=== PATIENT | male | born 1965 | race African-American/Black ===

== ENCOUNTER 2018-01-06 13:36 | Emergency (ER) | payer MEDICAID, OTHER ==
[~2018-01-06] VITALS: Ht 167.6 cm; Wt 87.0 kg
[~2018-01-06 13:36] MED LIST: ASPIRIN; ENALAPRIL; LIPITOR; METFORMIN
[2018-01-06 18:40] VITALS: BP 113/82
== END 2018-01-06 19:17 | disposition home or self-care (01) ==
LOC: ER 13:59
DX: S39.012A Strain of muscle, fascia and tendon of lower back, initial encounter (principal); E11.9 Type 2 diabetes mellitus without complications; F17.200 Nicotine dependence, unspecified, uncomplicated; F14.10 Cocaine abuse, uncomplicated; Z91.041 Radiographic dye allergy status; Z79.84 Long term (current) use of oral hypoglycemic drugs; W07.XXXA Fall from chair, initial encounter; Y93.89 Activity, other specified; Y92.811 Bus as the place of occurrence of the external cause
CPT/HCPCS: 72100; 99284

== ENCOUNTER 2022-08-03 09:09 | Emergency (ER) | payer MEDICAID ==
[~2022-08-03] VITALS: Ht 175.3 cm; Wt 81.6 kg
[2022-08-03 09:15] VITALS: BP 171/108
[2022-08-03] MEDS ORDERED: CEPH500T PO (10:42)
[2022-08-03] MEDS ORDERED: SULF1TAB48 PO (10:42)
[2022-08-03] MEDS ORDERED: LIDOCAINE HCL/PF 1% 10 MG/ML 5ML VIAL INFIL ONE (10:45)
== END 2022-08-03 13:39 | disposition home or self-care (01) ==
LOC: ER 09:09
DX: L02.31 Cutaneous abscess of buttock (principal); E11.9 Type 2 diabetes mellitus without complications; I10 Essential (primary) hypertension; F14.10 Cocaine abuse, uncomplicated; Z79.84 Long term (current) use of oral hypoglycemic drugs; Z79.82 Long term (current) use of aspirin; Z91.041 Radiographic dye allergy status; Z91.013 Allergy to seafood
CPT/HCPCS: 10060; 76604; 99284; J3490